=== PATIENT | female | born 1990 | race African-American/Black ===

== ENCOUNTER 2019-09-08 17:10 | Emergency (ER) | payer OTHER ==
--- NOTE | 2019-09-08 18:56 | ULT ---
EXAM: Transabdominal and transvaginal pelvic ultrasound with Doppler PROVIDED CLINICAL HISTORY: Low back pain COMPARISON: None FINDINGS: The uterus measures approximately 8.9 x 4.1 x 5.2 cm and demonstrates an intrauterine gestational sac containing a yolk sac and pole. heart tones are documented of 106 bpm. Estimated gestational age by crown-rump length is 6 weeks 0 days. Right ovary measures approximately 4.6 cm and demonstrates an unremarkable sonographic appearance. Left ovary measures approximately 3.2 cmdemonstrates a normal sonographic appearance. Grayscale and color Doppler sonography with spectral analysis of the ovarian waveforms demonstrates n ormal flow bilaterally. There is no evidence for free pelvic fluid. IMPRESSION: Single live intrauterine gestation, 6 weeks 0 days by ultrasound.
== END 2019-09-08 19:05 | disposition home or self-care (01) ==
LOC: ERS 17:10
DX: O99.89 Other specified diseases and conditions complicating pregnancy, childbirth and the puerperium (principal); R10.9 Unspecified abdominal pain; Z3A.01 Less than 8 weeks gestation of pregnancy
CPT/HCPCS: 76856

== ENCOUNTER 2019-12-28 07:29 | Outpatient (CLI) | payer OTHER ==
--- NOTE | 2019-12-28 09:41 | ULT ---
OB ULTRASOUND: HISTORY: anatomy. FINDINGS: A single live intrauterine gestation is seen with measurements corresponding to an estimated gestatio nal age of 22 weeks 3 days and BAILEY at 04/29/2020. The estimated weight measures 468 gm or 1 cosme nd (36% by Hadlock criteria). measurements are as follows: BPD 5.73 cm, 23 weeks 4 days HC 19.78 cm, 22 weeks 0 days AC 15.45 cm, 21 weeks 4 days FL 3.88 cm, 22 weeks 4 days heart rate measures 133 b.p.m. Cervix measures 3.2 cm. MARIANGEL measures 16.3 cm. Placenta is pos teriorly located and extends anteriorly. position is vertex. The lips/nose, lateral ventricles, cerebellum, and head are not well seen. A 3-vessel cord, cord insertion, kidneys, bladder, stomach, 4-chamber heart, spine, upper and l ower extremities are visualized without definite anomalies. IMPRESSION: 1. Single live intrauterine of 22 weeks 3 days and estimated date of delivery at 04/29/2020 . 2. Succenturiate lobe versus bilobed placenta. POS: OFF
== END 2019-12-28 07:30 | disposition home or self-care (01) ==
LOC: BICULT 07:29
PROVIDERS: ATTEND Family Medicine
DX: O09.892 Supervision of other high risk pregnancies, second trimester (principal); Z3A.22 22 weeks gestation of pregnancy
CPT/HCPCS: 76805

== ENCOUNTER 2020-05-01 10:10 | Outpatient (CLI) | payer OTHER ==
[2020-05-02 16:09] LABS: SARS-CoV-2 MS2 Positive; SARS-CoV-2 N Gene Negative; SARS-CoV-2 S Gene Negative; SARS-CoV-2 orf1ab Negative
== END 2020-05-01 10:11 | disposition home or self-care (01) ==
LOC: LABBT 10:10
PROVIDERS: ATTEND Family Medicine
DX: Z01.812 Encounter for preprocedural laboratory examination (principal); Z11.59 Encounter for screening for other viral diseases
CPT/HCPCS: 87635; U0003